=== PATIENT | female | born 1965 | race Caucasian/White ===

== ENCOUNTER 2018-07-25 12:29 | Inpatient (IN) | payer MEDICAID ==
[~2018-07-25] VITALS: Ht 154.9 cm; Wt 58.1 kg
[2018-07-25] MEDS ORDERED: NITROGLYCERIN 0.4MG TABLET SL SL PRN (14:45)
[2018-07-25] MEDS ORDERED: ASPIRIN 81MG TABLET PO ONE (14:45)
[2018-07-25 15:30] LABS: BASOPHILS % 0.7 % (0.0-2.0); EOSINOPHILS % 0.7 % (0.0-5.0); HEMATOCRIT. 38.8 % (36.0-48.0); HEMOGLOBIN. 13.6 g/dL (12.0-16.0); MEAN CORPUSCULAR HEMOGLOBIN 31.4 pg (28.0-32.0); MEAN CORPUSCULAR VOLUME 89.5 fL (81.0-99.0); MEAN PLATELET VOLUME 8.8 fl (7.4-10.4); MONOCYTES % 6.1 % (2.0-8.0); NEUTROPHILS % 70.5 % (40.0-76.0); PLATELET 325 x1000/uL (130-400); RED BLOOD CELL COUNT 4.33 mill/uL (4.2-5.4); RED CELL DISTRIBUTION WIDTH 12.3 % (11.6-14.6)
[2018-07-25 15:33] LABS: CHLORIDE 106 mEq/L (98-107)
[2018-07-25 15:39] LABS: D-DIMER 0.39 mg/L FEU (<0.50); INR 1.1; PARTIAL THROMBOPLASTIN TIME 27.9 sec (23.4-31.0); PROTHROMBIN TIME 10.7 sec (9.1-11.1)
[2018-07-25] MEDS ORDERED: ACETAMINOPHEN 325MG TABLET PO PRN (18:30)
[2018-07-25] MEDS ORDERED: DOCUSATE SODIUM 100MG CAPSULE PO PRN (18:30)
[2018-07-25] MEDS ORDERED: GUAIFENESIN 200MG/10ML SUGAR FREE UDC PO PRN (18:30)
[2018-07-25] MEDS ORDERED: ONDANSETRON HCL 4MG/2ML INJ IV PRN (18:30)
[2018-07-25] MEDS ORDERED: CLONIDINE 0.1MG TABLET PO PRN (18:30)
[2018-07-25] MEDS ORDERED: HYDROCODONE/ACETAMINOPHEN 5/325MG TABLET PO PRN (18:30)
[2018-07-25] MEDS ORDERED: MAGNESIUM/ALUMINUM HYDROXIDE/SIMETHICONE 30ML UDC PO PRN (18:30)
[2018-07-25] MEDS ORDERED: IPRATROPIUM/ALBUTEROL 0.5-3(2.5)MG/3ML NEB INH PRN (18:30)
[2018-07-25 19:33] LABS: CHLORIDE 107 mEq/L (98-107)
[2018-07-25 20:50] VITALS: BP 149/73
[2018-07-25] MEDS: ENOXAPARIN 40MG/0.4ML SYR SUBCUT SCH (21:06)
[2018-07-25 22:38] VITALS: BP 149/73
[2018-07-25 23:38] LABS: CREATINE KINASE 112 IU/L (26-192)
[2018-07-25 23:39] LABS: CREATINE KINASE MB FRACTION < 1.0 ng/mL (0.5-3.6)
[2018-07-26 00:05] VITALS: BP 126/70
[2018-07-26 04:00] VITALS: BP 112/59
[2018-07-26 06:15] LABS: EOSINOPHILS % 2.3 % (0.0-5.0); HEMATOCRIT. 35.7 % (36.0-48.0); HEMOGLOBIN. 12.4 g/dL (12.0-16.0); LYMPHOCYTES % 40.8 % (20.0-50.0); MEAN CORPUSCULAR HEMOGLOBIN 31.1 pg (28.0-32.0); MEAN CORPUSCULAR VOLUME 89.4 fL (81.0-99.0); MONOCYTES % 7.6 % (2.0-8.0); NEUTROPHILS % 48.3 % (40.0-76.0); PLATELET 316 x1000/uL (130-400); RED BLOOD CELL COUNT 3.99 mill/uL (4.2-5.4); RED CELL DISTRIBUTION WIDTH 12.2 % (11.6-14.6)
[2018-07-26 06:40] LABS: LDL CHOLESTEROL 104 mg/dL (5-100)
[2018-07-26 06:41] LABS: CREATINE KINASE 98 IU/L (26-192); HDL CHOLESTEROL 46 mg/dL (40-59)
[2018-07-26 06:44] LABS: CREATINE KINASE MB FRACTION < 1.0 ng/mL (0.5-3.6)
[2018-07-26] MEDS: ASPIRIN 81MG EC TABLET PO SCH (07:59)
[2018-07-26 08:00] VITALS: BP 113/69
[2018-07-26 12:30] VITALS: BP 110/55
[2018-07-26] MEDS ORDERED: MAGNESIUM/ALUMINUM HYDROXIDE/SIMETHICONE 30ML UDC PO PRN (14:00)
[2018-07-26 16:00] VITALS: BP 135/65
[2018-07-26 20:00] VITALS: BP 129/63
[2018-07-26] MEDS: ENOXAPARIN 40MG/0.4ML SYR SUBCUT SCH (20:44)
[2018-07-27 00:05] VITALS: BP 109/66
[2018-07-27 04:00] VITALS: BP 107/68
[2018-07-27 07:31] LABS: BASOPHILS % 0.8 % (0.0-2.0); EOSINOPHILS % 2.5 % (0.0-5.0); HEMATOCRIT. 35.8 % (36.0-48.0); HEMOGLOBIN. 12.6 g/dL (12.0-16.0); LYMPHOCYTES % 36.4 % (20.0-50.0); MEAN CORPUSCULAR HEMOGLOBIN 31.5 pg (28.0-32.0); MEAN CORPUSCULAR VOLUME 89.8 fL (81.0-99.0); MEAN PLATELET VOLUME 8.5 fl (7.4-10.4); MONOCYTES % 8.9 % (2.0-8.0); NEUTROPHILS % 51.4 % (40.0-76.0); PLATELET 305 x1000/uL (130-400); RED BLOOD CELL COUNT 3.99 mill/uL (4.2-5.4); RED CELL DISTRIBUTION WIDTH 12.5 % (11.6-14.6)
[2018-07-27 08:00] VITALS: BP 123/63
[2018-07-27] MEDS: ASPIRIN 81MG EC TABLET PO SCH (08:34)
[2018-07-27 09:14] LABS: CHLORIDE 106 mEq/L (98-107)
[2018-07-27 09:23] LABS: PHOSPHORUS 3.8 mg/dL (2.5-4.9)
[2018-07-27 12:00] VITALS: BP 132/68
[2018-07-27] MEDS ORDERED: ASPI-1158 PO (16:00)
[2018-07-27 16:55] VITALS: BP 125/69
== END 2018-07-27 17:51 | disposition home or self-care (01) | DRG 756 ==
LOC: ER 12:29 → 7WST 17:16 → EDBEDREQ 17:24 → ENRESERV 19:31
PROVIDERS: ADMIT Internal Medicine; ATTEND Internal Medicine
DX: F41.9 Anxiety disorder, unspecified (principal); G89.29 Other chronic pain; M54.9 Dorsalgia, unspecified; K21.9 Gastro-esophageal reflux disease without esophagitis; Z90.49 Acquired absence of other specified parts of digestive tract; Z88.0 Allergy status to penicillin
CPT/HCPCS: 36415; 71045; 80048; 80053; 80061; 82550; 82553; 83735; 83880; 84100; 84443; 84484; 85025; 85379; 85610; 85730; 93005; 93306; 93970; 96372; 99285; J1650